=== PATIENT | female | born 1985 | race Caucasian/White ===

== ENCOUNTER 2016-07-15 22:36 | Emergency (ER) | payer MEDICAID ==
[~2016-07-15] VITALS: Ht 162.6 cm; Wt 82.0 kg
[~2016-07-15 22:36] MED LIST: CLIN-73 PO; DICL50TA11 PO; HYDR-3498 PO; IBUP400T22 PO; ONDA4TAB8 PO
[2016-07-15 22:40] VITALS: Ht 162.6 cm; Wt 82.0 kg
[2016-07-15] MEDS ORDERED: ONDANSETRON (ODT) 4 MG TAB ODT STA (22:53)
--- NOTE | 2016-07-15 22:58 | ERD ---
ER Documentation Chief Complaint Date/Time DATE: 07/15/16 TIME: 22:54 Chief Complaint headeache x 5 days HPI 31-year-old female presents here in emergency department for complaint of headache for 5 days. Patient described pain as throbbing pain, 4/10 scale, is worse upon seeing lights and loud noises. Patient has been having on and off headache for the last 2 years, has never had any radiology exams done. Patient has been taking dxgb-zfy-[id number] Excedrin to help with a headache at times which helped. This time, this does not help. Patient does not have any vomiting but is complaining of nausea. Patient did not have any head injury. ROS All systems reviewed and are negative except as per history of present illness. Medications Home Meds Active Scripts Ondansetron Hcl* (Zofran*) 4 Mg Tablet, 4 MG PO Q8H Y for NAUSEA AND/OR VOMITING , #30 TAB Prov:RUSTY SIU PA-C 01/14/16 Ibuprofen* (Motrin*) 400 Mg Tab, 400 MG PO Q6, #30 TAB Prov:RUSTY SIU PA-C 01/14/16 Hydrocodone Bit-Acetaminophen* (Waddell*) 5-325 Mg Tab, 1 TAB PO Q6 Y for PAIN, # 20 TAB Prov:CHRISSY OVALLES 08/26/15 Clindamycin Hcl* (Clindamycin Hcl*) 300 Mg Capsule, 450 MG PO TID for 10 Days, CAP Prov:CHRISSY OVALLES 08/26/15 Ondansetron Hcl* (Zofran*) 4 Mg Tablet, 4 MG PO Q8H Y for NAUSEA AND/OR VOMITING , #6 TAB Prov:HARPAL MILES DO 03/14/15 Diclofenac Sodium* (Diclofenac Sodium*) 50 Mg Tablet.dr, 50 MG PO TID, #10 TAB Prov:HARPAL MILES DO 03/14/15 Hydrocodone Bit-Acetaminophen* (Waddell*) 5-325 Mg Tab, 1 TAB PO Q6 Y for PAIN, # 7 TAB Prov:HARPAL MILES DO 03/14/15 Allergies Allergies: Coded Allergies: No Known Drug Allergy (Verified Allergy, Unknown, 01/14/16) PMhx/Soc Medical and Surgical Hx: pt denies Medical Hx History of Surgery: Yes (, bilateral tubal-ligation) Hx Neurological Disorder: No Hx Respiratory Disorders: No Hx Cardiac Disorders: No Hx Miscellaneous Medical Probl: Yes (DENIES MEDICAL PROBLEMS) Hx Alcohol Use: No Hx Substance Use: No Hx Tobacco Use: No Smoking Status: Never smoker FmHx Family History: No coronary disease, No diabetes, No other Physical Exam Vitals Vital Signs Date Time Temp Pulse Resp B/P Pulse Ox O2 Delivery O2 Flow Rate FiO2 07/15/16 22:40 98.5 80 20 133/79 100 Physical Exam GENERAL: The patient is well developed and appropriate for usual state of health, in no apparent distress. CHEST: Clear to auscultation bilaterally. There are no rales, wheezes or rhonchi. HEART: Regular rate and rhythm. No murmurs, clicks, rubs or gallops. No S3 or S4. ABDOMEN: Soft, nontender and nondistended. Good bowel sounds. No rebound or guarding. No gross peritonitis. No gross organomegaly or masses. No Wagner sign or McBurney point tenderness. BACK: No midline or flank tenderness. EXTREMITIES: Equal pulses bilaterally. There is no peripheral clubbing, cyanosis or edema. No focal swelling or erythema. Full range of motion. Grossly neurovascularly intact. NEURO: Alert and oriented. Cranial nerves 2-12 intact. Motor strength in all 4 extremities with 5/5 strength. Sensation grossly intact. Normal speech and gait. Negative Romberg sign. Negative pronator drift. SKIN: There is no apparent rash or petechia. The skin is warm and dry. HEMATOLOGIC AND LYMPHATIC: There is no evidence of excessive bruising or lymphedema. No gross cervical, axillary, or inguinal lymphadenopathy. Results 24 hrs Current Medications Medications (Trade) Dose Ordered Sig/Diya Route PRN Reason Start Time Stop Time Status Last Admin Dose Admin Acetam/Butalbital/ Caffeine/Codeine (Fioricet/ Codeine) 1 cap ONCE ONCE PO 07/15/16 23:00 07/15/16 23:01 DC 07/15/16 23:10 Ondansetron HCl (Zofran Odt) 4 mg ONCE STAT ODT 07/15/16 22:53 07/15/16 22:54 DC 07/15/16 22:58 Patient was given Zofran here in the emergency department. After treatment, patient was able to tolerate po fluids here in the emergency department without any vomiting. There is no signs and symptoms of dehydration. Patient was given medication for pain here in emergency department, after treatment, patient verbalized feeling much better. Patient's pain is improved. PROCEDURE: CT Head without. CLINICAL INDICATION: Headache. TECHNIQUE: The study was performed utilizing a multi-slice, multidetector CT scanner. Direct spiral 1 mm axial sections were obtained through the head without the use of intravenous contrast material. 1 or more of the following dose reduction techniques were utilized: Automated exposure control, adjustment of the mA and/or kV according to patient's size, iterative reconstruction technique. Coronal and sagittal reformations were obtained. The images were reviewed on a PACS workstation. RADIATION DOSE: CTDIvol: 44.8 mGy DLP: 720.2 mGy-cm COMPARISON: No prior studies are available for comparison. FINDINGS: There is no intracranial hemorrhage, extra-axial fluid collection, mass lesion, midline shift or hydrocephalus. The ventricles, sulci and cisterns are within normal limits. The white matter is unremarkable. The dominguez-white matter differentiation is preserved. The basal cisterns are patent. The midline structures are intact. The orbits, calvarium and extracranial soft tissues are normal in appearance. The visualized paranasal sinuses, mastoid air cells and middle ear cavities are normally aerated. IMPRESSION: 1. No acute intracranial abnormality. No intracranial hemorrhage, extra-axial fluid collection, mass lesion or hydrocephalous. RPTAT: HGAS .Tor Blanc MD, MD Date Time Electronically viewed and signed by .Tor Blanc MD, MD on 07/15/2016 23: 06 .S/ CC: SHARIF STRICKLAND PROOFING MACHINE OPERATOR Procedures/[facility] Medical Decision Making: Patient's headache most likely is consistent with migraine headache, can be also tension headache, further evaluation by neurology specialist is appropriate of this time outpatient. There is low suspicion for neurological emergencies at this time since patients neurologic exam is normal. Patient did not have any altered level consciousness, vomiting, changes in balance or memory and did not have any head injury. Patients CT scan of the head does not show any neurological emergencies at this time. Prescription was given for Fioricet with codeine, Zofran, is advised to follow- up with primary care doctor in 2-3 days for reevaluation of symptoms. Patient was advised to possibly see a neurology specialist. She was advised to return to emergency department for any worsening symptoms. Departure Diagnosis: Primary Impression: Headache Headache type: unspecified Headache chronicity pattern: unspecified pattern Intractability: not intractable Qualified Code: R51 - Nonintractable headache, unspecified chronicity pattern, unspecified headache type Condition: Stable Patient Instructions: Self-Care for Headaches SHARIF STRICKLAND NP Jul 15, 2016 22:58
[2016-07-15] MEDS ORDERED: ACET/BUTAL/CAFF/CODEINE CAP PO ONE (23:00)
--- NOTE | 2016-07-15 23:06 | RADRPT ---
PROCEDURE: CT Head without. CLINICAL INDICATION: Headache. TECHNIQUE: The study was performed utilizing a multi-slice, multidetector CT scanner. Direct spira l 1 mm axial sections were obtained through the head without the use of intravenous contrast materia l. 1 or more of the following dose reduction techniques were utilized: Automated exposure control, adjustment of the mA and/or kV according to patient's size, iterative reconstruction technique. Co teresa and sagittal reformations were obtained. The images were reviewed on a PACS workstation. RADIATION DOSE: CTDIvol: 44.8 mGyDLP: 720.2 mGy-cm COMPARISON: No prior studies are available for comparison. FINDINGS: There is no intracranial hemorrhage, extra-axial fluid collection, mass lesion, midline shift or hyd rocephalus. The ventricles, sulci and cisterns are within normal limits. The white matter is unrem arkable. The dominguez-white matter differentiation is preserved. The basal cisterns are patent. The m idline structures are intact. The orbits, calvarium and extracranial soft tissues are normal in vladislav earance. The visualized paranasal sinuses, mastoid air cells and middle ear cavities are normally ae rated. IMPRESSION: 1. No acute intracranial abnormality. No intracranial hemorrhage, extra-axial fluid collection, ma ss lesion or hydrocephalous. RPTAT: HGAS .Tor Blanc MD, MD Date Time Electronically viewed and signed by .Tor Blanc MD, on 07/15/2016 23:06 .S/
[2016-07-15] MEDS ORDERED: ONDA4TAB14 PO (23:23)
[2016-07-15] MEDS ORDERED: BUTA1CAP39 PO (23:23)
[2016-07-15 23:43] VITALS: BP 110/72; PULSE 62; RESP 20; TEMP 98.7
== END 2016-07-15 23:45 | disposition home or self-care (01) ==
LOC: FTE 22:36
DX: R51 Headache (principal)
CPT/HCPCS: 70450; Z7502; Z7610

== ENCOUNTER 2016-11-23 05:47 | Emergency (ER) | payer MEDICAID ==
[~2016-11-23] VITALS: Ht 162.6 cm; Wt 84.5 kg
[~2016-11-23 05:47] MED LIST changes: +BUTA1CAP39 PO; +ONDA4TAB14 PO
[2016-11-23 05:50] VITALS: Ht 162.6 cm; Wt 84.5 kg
[2016-11-23] MEDS ORDERED: HYDROCODONE/APAP (5/325) TAB PO ONE (07:00)
[2016-11-23] MEDS ORDERED: HYDR-906 PO (07:23)
[2016-11-23] MEDS ORDERED: NAPR-260 PO (07:23)
--- NOTE | 2016-11-23 07:32 | ERD ---
ER Documentation Chief Complaint Date/Time DATE: 11/23/16 TIME: 07:28 Chief Complaint back pain giorgi marquez to right lower leg x 10 days HPI Is a 31-year-old female who presents to the emergency department for concerns of lower back pain radiating down her right leg which started 10 days ago. Patient states that the pain is worse with walking. At rest pain is minimal. Patient describes the pain to be sharp in nature. Patient denies any heavy lifting or trauma. Patient denies any falls. Patient denies any urinary incontinence, stool incontinence, saddle anesthesia, fever, chills, nausea, vomiting, abdominal pain, dysuria, frequency, urgency, hematuria or LOC. No recent travel. No sick contacts. Patient denies trying any medications for her symptoms. ROS All systems reviewed and are negative except as per history of present illness. Medications Home Meds Active Scripts Naproxen* (Naprosyn*) 500 Mg Tablet, 500 MG PO BID Y for PAIN AND/OR INFLAMMATION, #30 TAB Prov:RUSTY SIU PA-C 11/23/16 Hydrocodone/Acetaminophen (Cresbard 5-325 Tablet) 1 Each Tablet, 1 TAB PO Q6H Y for PAIN, #7 TAB Prov:RUSTY SIU PA-C 11/23/16 Nyjlxnkyxfeza-Yviobiwkns-Liwtuhnf-Codeine* (Fioricet w/ Codeine*) [id number] 30MG Capsule, 1 CAP PO Q6H Y for PAIN LEVEL 1-5, #20 CAP Prov:SHARIF STRICKLAND EXTRACTOR MACHINE OPERATOR 07/15/16 Ondansetron (Ondansetron Odt) 4 Mg Tab.rapdis, 4 MG PO Q8 Y for NAUSEA AND/OR VOMITING, #30 TAB Prov:SHARIF STRICKLAND EXTRACTOR MACHINE OPERATOR 07/15/16 Ondansetron Hcl* (Zofran*) 4 Mg Tablet, 4 MG PO Q8H Y for NAUSEA AND/OR VOMITING , #30 TAB Prov:RUSTY SIU PA-C 01/14/16 Ibuprofen* (Motrin*) 400 Mg Tab, 400 MG PO Q6, #30 TAB Prov:RUSTY SIU PA-C 01/14/16 Hydrocodone Bit-Acetaminophen* (Cresbard*) 5-325 Mg Tab, 1 TAB PO Q6 Y for PAIN, # 20 TAB Prov:CHRISSY OVALLES 08/26/15 Clindamycin Hcl* (Clindamycin Hcl*) 300 Mg Capsule, 450 MG PO TID for 10 Days, CAP Prov:CHRISSY OVALLES 08/26/15 Ondansetron Hcl* (Zofran*) 4 Mg Tablet, 4 MG PO Q8H Y for NAUSEA AND/OR VOMITING , #6 TAB Prov:HARPAL MILES DO 03/14/15 Diclofenac Sodium* (Diclofenac Sodium*) 50 Mg Tablet.dr, 50 MG PO TID, #10 TAB Prov:HARPAL MILES 03/14/15 Hydrocodone Bit-Acetaminophen* (Cresbard*) 5-325 Mg Tab, 1 TAB PO Q6 Y for PAIN, # 7 TAB Prov:HARPAL MILES DO 03/14/15 Allergies Allergies: Coded Allergies: No Known Drug Allergy (Verified Allergy, Unknown, 01/14/16) PMhx/Soc Medical and Surgical Hx: pt denies Medical Hx History of Surgery: Yes (, tubal-ligation) Hx Neurological Disorder: Yes (MIGRAINE) Hx Respiratory Disorders: No Hx Cardiac Disorders: No Hx Miscellaneous Medical Probl: No Hx Alcohol Use: No Hx Substance Use: No Hx Tobacco Use: No Smoking Status: Never smoker FmHx Family History: No diabetes Physical Exam Vitals Vital Signs Date Time Temp Pulse Resp B/P Pulse Ox O2 Delivery O2 Flow Rate FiO2 11/23/16 05:50 97.8 78 20 114/67 100 Physical Exam GENERAL: Well-developed, well-nourished female. Appears in no acute distress. Speaking in full sentences HEAD: Normocephalic, atraumatic. EYES: Pupils are equally reactive bilaterally. EOMs grossly intact. No conjunctival erythema. ENT: Moist mucous membranes. No uvula deviation. No kissing tonsils. NECK: Supple. No meningismus. Normal range of motion of the neck. LUNG: Clear to auscultation bilaterally. No rhonchi, wheezing, rales or coarse breath sounds. HEART: Regular rate and rhythm. No murmurs, rubs or gallops. ABDOMEN: Soft, nontender, and nondistended. Positive bowel sounds in all four quadrants. No rebound tenderness, no guarding. (-) McBurney's point tenderness. No CVA tenderness. BACK: No midline tenderness. Tender to palpation of the right paraspinous lumbar muscles. +Right-sided straight leg raise test. EXTREMITIES: Equal pulses bilaterally. No peripheral clubbing, cyanosis or edema. No unilateral leg swelling. NEUROLOGIC: Alert and oriented. Moving all four extremities without any difficulty. Normal speech. Steady gait. SKIN: Normal color. Warm and dry. No rashes or lesions. Results 24 hrs Current Medications Medications (Trade) Dose Ordered Sig/Diya Route PRN Reason Start Time Stop Time Status Last Admin Dose Admin Acetaminophen/ Hydrocodone Bitart (Cresbard (5/325)) 1 tab ONCE ONCE PO 11/23/16 07:00 11/23/16 07:01 DC 11/23/16 07:00 Procedures/MDM ED COURSE: The patient was stable throughout ED course. I kept the patient and/or family informed of laboratory and diagnostic imaging results throughout the ED course. PROCEDURES: None. MEDICATIONS GIVEN: Cresbard Patient tolerated medication well with no adverse reactions. Patient reported improvement in pain. MEDICAL DECISION MAKING: This is a 31-year-old female who presents with lower back pain radiating down her right lower leg 10 days.. Vital signs were reviewed. Patient was afebrile. Patient denied any saddle anesthesia, urinary incontinence, bowel incontinence, night pain or recent trauma. Patient denies any falls or trauma, do not believe that x-ray imaging is indicated at this time. Patient did have a positive straight leg raise on the right side. Urine test was negative. Given these findings, the patients presentation is most consistent with lower back pain with sciatica. I have a much lower clinical concern for cauda equine syndrome, spinal fractures, epidural abscess, spinal metastases, osteomyelitis, aortic dissection, ruptured or leaking AA, UTI, pyelonephritis or nephrolithiasis. PRESCRIPTIONS: Naproxen, Cresbard Patient advised to take Cresbard only when at home. Patient advised not to take this medication when operating any machinery or driving. DISCHARGE: At this time, patient is stable for discharge and outpatient management. RICE therapy and ROM exercises were advised to avoid stiffness. I have instructed the patient to follow-up with his/her primary care physician in 1-2 days. I have discussed with the patient the possibility of needing to see an magneto specialist for further workup and imaging if the pain persists. I have instructed the patient to promptly return to the ER for any new or worsening symptoms including increased pain, swelling, warmth, urinary incontinence, stool incontinence, weakness or numbness. The patient and/or family expressed understanding of and agreement with this plan. All questions were answered. Home care instructions were provided. Departure Diagnosis: Primary Impression: Back pain Back pain location: low back pain Chronicity: acute Back pain laterality: right Sciatica presence: with sciatica Sciatica laterality: sciatica of right side Qualified Code: M54.41 - Acute right-sided low back pain with right -sided sciatica Condition: Stable Patient Instructions: Back Pain (Acute Or Chronic), Back Pain W/ Sciatica Referrals: [facility] YOU HAVE RECEIVED A MEDICAL SCREENING EXAM AND THE RESULTS INDICATE THAT YOU DO NOT HAVE A CONDITION THAT REQUIRES URGENT TREATMENT IN THE EMERGENCY DEPARTMENT. FURTHER EVALUATION AND TREATMENT OF YOUR CONDITION CAN WAIT UNTIL YOU ARE SEEN IN YOUR DOCTORS OFFICE WITHIN THE NEXT 1-2 DAYS. IT IS YOUR RESPONSIBILITY TO MAKE AN APPOINTMENT FOR FOLOW-UP CARE. IF YOU HAVE A PRIMARY DOCTOR --you should call your primary doctor and schedule an appointment IF YOU DO NOT HAVE A PRIMARY DOCTOR YOU CAN CALL OUR PHYSICIAN REFERRAL HOTLINE AT IF YOU CAN NOT AFFORD TO SEE A PHYSICIAN YOU CAN CHOSE FROM THE FOLLOWING [facility] [address] [facility]. [facility] [address] [facility] [address] [place] [facility] [facility] [address] [facility] [facility] [address] [facility]. [facility]. [address] [facility]. [facility] YOU HAVE RECEIVED A MEDICAL SCREENING EXAM AND THE RESULTS INDICATE THAT YOU DO NOT HAVE A CONDITION THAT REQUIRES URGENT TREATMENT IN THE EMERGENCY DEPARTMENT. FURTHER EVALUATION AND TREATMENT OF YOUR CONDITION CAN WAIT UNTIL YOU ARE SEEN IN YOUR DOCTORS OFFICE WITHIN THE NEXT 1-2 DAYS. IT IS YOUR RESPONSIBILITY TO MAKE AN APPOINTMENT FOR FOLOW-UP CARE. IF YOU HAVE A PRIMARY DOCTOR --you should call your primary doctor and schedule and appointment IF YOU DO NOT HAVE A PRIMARY DOCTOR YOU CAN CALL OUR PHYSICIAN REFERRAL HOTLINE AT . IF YOU CAN NOT AFFORD TO SEE A PHYSICIAN YOU CAN CHOSE FROM THE FOLLOWING [facility] INSTITUTIONS: [facility] [address] [place] [address] [facility] [address] [place] [address] [facility] [address] [place] [address] [facility] [place] Hours: Mon-Fri 9:00 AM - 5:00 PM Additional Instructions: Call your primary care doctor TOMORROW for an appointment during the next 1-2 days.See the doctor sooner or return here if your condition worsens before your appointment time. RUSTY SIU PA-C Nov 23, 2016 07:32
== END 2016-11-23 07:40 | disposition home or self-care (01) ==
LOC: FTE 05:47
DX: M54.41 Lumbago with sciatica, right side (principal)
CPT/HCPCS: Z7502; Z7610; 99283

== ENCOUNTER 2017-05-17 05:44 | Emergency (ER) | END 2017-05-17 06:50 | disposition home or self-care (01) ==

== ENCOUNTER 2017-10-01 07:16 | Emergency (ER) | END 2017-10-01 11:54 | disposition home or self-care (01) ==